=== PATIENT | male | born 1970 | race Caucasian/White ===

== ENCOUNTER 2017-03-25 13:06 | Inpatient (IN) | payer MEDICAID ==
[~2017-03-25] VITALS: Ht 170.2 cm; Wt 72.1 kg
[2017-03-25] MEDS ORDERED: ASPIRIN 81MG TABLET PO STA (17:24)
[2017-03-25 17:46] LABS: BASOPHILS % 0.3 % (0.0-2.0); EOSINOPHILS % 0.1 % (0.0-5.0); HEMATOCRIT. 45.6 % (42.0-52.0); HEMOGLOBIN. 16.2 g/dL (14.0-18.0); LYMPHOCYTES % 10.6 % (20.0-50.0); MEAN CORPUSCULAR HEMOGLOBIN 34.5 pg (28.0-32.0); MEAN CORPUSCULAR VOLUME 97.2 fL (80.0-94.0); MEAN PLATELET VOLUME 8.6 fl (7.4-10.4); MONOCYTES % 10.7 % (2.0-8.0); NEUTROPHILS % 78.3 % (40.0-76.0); PLATELET 65 x1000/uL (130-400); RED BLOOD CELL COUNT 4.69 mill/uL (4.7-6.1); RED CELL DISTRIBUTION WIDTH 12.5 % (11.6-14.6)
[2017-03-25 17:52] LABS: CHLORIDE 94 mEq/L (98-107)
[2017-03-25 17:53] LABS: CARBON DIOXIDE 27 mEq/L (21-32); INR 1.2; PARTIAL THROMBOPLASTIN TIME 25.5 sec (23.4-31.0); PROTHROMBIN TIME 12.1 sec (9.4-11.6)
[2017-03-25 17:56] LABS: ETHANOL BLOOD < 10 mg/dL
[2017-03-25 18:01] LABS: TROPONIN I < 0.02 ng/mL (0.00-0.04)
[2017-03-25] MEDS ORDERED: LORAZEPAM 2MG/ML CPJ IV ONE (18:45)
[2017-03-25] MEDS ORDERED: FOLIC ACID 1 MG, THIAMINE HCL 100 MG, MVI, ADULT NO.1 10 ML in DEXTROSE 5% WATER 1,000 ML IV ONE ×4 (19:00)
[2017-03-25] MEDS ORDERED: MAGNESIUM/ALUMINUM HYDROXIDE/SIMETHICONE 30ML UDC PO PRN (20:00)
[2017-03-25] MEDS ORDERED: LORAZEPAM 2MG/ML CPJ IV PRN (20:00)
[2017-03-25] MEDS ORDERED: ONDANSETRON HCL 4MG/2ML VIAL IV PRN (20:00)
[2017-03-25] MEDS ORDERED: ENOXAPARIN 40MG/0.4ML SYR SUBCUT SCH (20:00)
[2017-03-25] MEDS ORDERED: CLONIDINE 0.1MG TABLET PO PRN (20:00)
[2017-03-25] MEDS ORDERED: HYDROCODONE/ACETAMINOPHEN 5/325MG TABLET PO PRN (20:00)
[2017-03-25] MEDS ORDERED: IPRATROPIUM/ALBUTEROL 0.5-3(2.5)MG/3ML NEB INH PRN (20:00)
[2017-03-25] MEDS ORDERED: ACETAMINOPHEN 325MG TABLET PO PRN (20:00)
[2017-03-25 21:30] VITALS: BP 133/81
[2017-03-25] MEDS ORDERED: DEXTROSE 50% WATER 50ML SYRINGE IV PRN (21:45)
[2017-03-25] MEDS: CHLORDIAZEPOXIDE 25MG CAPSULE PO SCH (22:06)
[2017-03-25] MEDS: BLOOD SUGAR DIAGNOSTIC STRIP TEST SCH (22:07)
[2017-03-25] MEDS: INSULIN LISPRO 100 UNITS/ML SUBCUT SCH (22:10)
[2017-03-25 23:59] VITALS: BP 133/81
[2017-03-26] VITALS: BP 127/79
[2017-03-26] MEDS ORDERED: januvia PO (00:24)
[2017-03-26] MEDS ORDERED: lopid PO (00:24)
[2017-03-26] MEDS ORDERED: GLIP10TA10 PO (00:24)
[2017-03-26] MEDS ORDERED: benazepril PO (00:24)
[2017-03-26 00:55] LABS: CREATINE KINASE 254 IU/L (39-308); CREATINE KINASE MB FRACTION 2.2 ng/mL (0.5-3.6); TROPONIN I < 0.02 ng/mL (0.00-0.04)
[2017-03-26] MEDS: SODIUM CHLORIDE 0.9% 1,000 ML IV SCH ×2 (02:28→11:11)
[2017-03-26 04:00] VITALS: BP 123/79
[2017-03-26] MEDS: CHLORDIAZEPOXIDE 25MG CAPSULE PO SCH ×3 (06:03→21:39)
[2017-03-26] MEDS: BLOOD SUGAR DIAGNOSTIC STRIP TEST SCH ×4 (06:32→21:39)
[2017-03-26 06:33] LABS: BASOPHILS % 0.7 % (0.0-2.0); EOSINOPHILS % 1.8 % (0.0-5.0); HEMATOCRIT. 41.8 % (42.0-52.0); HEMOGLOBIN. 14.8 g/dL (14.0-18.0); LYMPHOCYTES % 23.1 % (20.0-50.0); MEAN CORPUSCULAR HEMOGLOBIN 34.6 pg (28.0-32.0); MEAN CORPUSCULAR VOLUME 97.8 fL (80.0-94.0); MEAN PLATELET VOLUME 9.8 fl (7.4-10.4); MONOCYTES % 10.7 % (2.0-8.0); NEUTROPHILS % 63.7 % (40.0-76.0); PLATELET 61 x1000/uL (130-400); RED BLOOD CELL COUNT 4.27 mill/uL (4.7-6.1); RED CELL DISTRIBUTION WIDTH 12.4 % (11.6-14.6)
[2017-03-26] MEDS: INSULIN LISPRO 100 UNITS/ML SUBCUT SCH ×4 (06:39→21:37)
[2017-03-26 07:06] LABS: CARBON DIOXIDE 26 mEq/L (21-32); CHLORIDE 97 mEq/L (98-107); CREATINE KINASE 217 IU/L (39-308); LDL CHOLESTEROL 120 mg/dL (5-100); TROPONIN I < 0.02 ng/mL (0.00-0.04)
[2017-03-26 07:11] LABS: HDL CHOLESTEROL 54 mg/dL (40-59)
[2017-03-26] MEDS: MULTIVITAMINS,THER W-MINERALS TABLET PO SCH (08:45)
[2017-03-26] MEDS: THIAMINE HCL 100MG TABLET PO SCH (08:46)
[2017-03-26] MEDS: ASPIRIN 81MG EC TABLET PO SCH (08:46)
[2017-03-26] MEDS: FOLIC ACID 1MG TABLET PO SCH (08:46)
[2017-03-26] MEDS ORDERED: POTASSIUM CHLORIDE 20MEQ TABLET SR PO NR (11:30)
[2017-03-26] MEDS ORDERED: INFLUENZA VIRUS VACCINE 0.5ML SYR IM ONE (12:00)
[2017-03-26] MEDS ORDERED: PNEUMOCOCCAL 23-VAL P-SAC VAC 0.5 ML IM ONE (12:00)
[2017-03-26] MEDS ORDERED: ATOR-2 PO (17:32)
[2017-03-26] MEDS ORDERED: METF10002 PO (17:32)
[2017-03-26 20:00] VITALS: BP 118/80
[2017-03-26] MEDS ORDERED: ATORVASTATIN CALCIUM 20MG TABLET PO SCH (21:00)
[2017-03-27] VITALS: BP 129/76
[2017-03-27] MEDS: SODIUM CHLORIDE 0.9% 1,000 ML IV SCH (00:25)
[2017-03-27 04:00] VITALS: BP 120/78
[2017-03-27] MEDS: BLOOD SUGAR DIAGNOSTIC STRIP TEST SCH ×2 (06:18→12:22)
[2017-03-27] MEDS: INSULIN LISPRO 100 UNITS/ML SUBCUT SCH ×2 (06:20→12:38)
[2017-03-27] MEDS: CHLORDIAZEPOXIDE 25MG CAPSULE PO SCH (06:21)
[2017-03-27 08:00] VITALS: BP 140/94
[2017-03-27] MEDS: FOLIC ACID 1MG TABLET PO SCH (08:50)
[2017-03-27] MEDS: MULTIVITAMINS,THER W-MINERALS TABLET PO SCH (08:50)
[2017-03-27] MEDS: ASPIRIN 81MG EC TABLET PO SCH (08:50)
[2017-03-27] MEDS: THIAMINE HCL 100MG TABLET PO SCH (08:50)
[2017-03-27 12:00] VITALS: BP 124/79
[2017-03-27] MEDS ORDERED: FOLI-43 PO (12:06)
[2017-03-27] MEDS ORDERED: Multivitamins,Ther W-Minerals PO (12:06)
[2017-03-27] MEDS ORDERED: THIA100T72 PO (12:06)
[2017-03-27 14:18] VITALS: BP 124/79
== END 2017-03-27 14:35 | disposition home or self-care (01) | DRG 203 ==
LOC: ER 15:49 → 5WST 17:30 → EDBEDREQ 18:58 → ENRESERV 19:31 → CANRESERV 19:32 → ENRESERV 19:32
PROVIDERS: ADMIT Internal Medicine; ATTEND Internal Medicine
DX: R07.89 Other chest pain (principal); I10 Essential (primary) hypertension; E11.9 Type 2 diabetes mellitus without complications; E78.5 Hyperlipidemia, unspecified; Z79.899 Other long term (current) drug therapy; E78.00 Pure hypercholesterolemia, unspecified; F10.230 Alcohol dependence with withdrawal, uncomplicated
CPT/HCPCS: 36415; 71010; 80053; 80061; 82550; 82553; 82962; 83735; 83880; 84443; 84484; 85025; 85610; 85730; 90686; 90732; 93005; 93970; 96365; 96375; 99285; G0482; J1815; J2060; J3411; J3490; J7030; J7070

== ENCOUNTER 2017-08-06 18:21 | Emergency (ER) | payer MEDICAID, OTHER ==
[~2017-08-06] VITALS: Ht 170.2 cm; Wt 77.1 kg
[~2017-08-06 18:21] MED LIST: ATOR-2 PO; FOLI-43 PO; GLIP10TA10 PO; Multivitamins,Ther W-Minerals PO; THIA100T72 PO; benazepril PO; januvia PO
[2017-08-06 19:20] VITALS: BP 131/69
[2017-08-06] MEDS ORDERED: ACETAMINOPHEN 500MG TABLET PO ONE (20:30)
== END 2017-08-06 21:30 | disposition left against medical advice (07) ==
LOC: ER 21:06
DX: S00.11XA Contusion of right eyelid and periocular area, initial encounter (principal); E11.9 Type 2 diabetes mellitus without complications; W22.8XXA Striking against or struck by other objects, initial encounter; Y93.89 Activity, other specified; Y92.89 Other specified places as the place of occurrence of the external cause; Z79.84 Long term (current) use of oral hypoglycemic drugs
CPT/HCPCS: 70486; 99284